=== PATIENT | male | born 1955 | race Caucasian/White ===

== ENCOUNTER 2017-04-07 09:24 | Emergency (ER) | payer SELFPAY ==
[2017-04-07] MEDS ORDERED: Lidocaine 1% 20 ML MDV ONE (09:43)
[2017-04-07] MEDS ORDERED: Triple Antibiotic Oint 1 GM Packet ONE (10:38)
--- NOTE | 2017-04-07 11:08 | RAD ---
RIGHT FINGERS 2 VIEWS: HISTORY: Right finger injury. FINDINGS: Soft tissue laceration involves the dorsum of the fingers. Overlapping on the lateral view obscures detail. Joint space narrowing and osteophytosis is present with well-corticated ossification of tiny ossific avulsions at the posterior aspect of the distal interphalangeal joints. Tiny irregular calcific dens ities overlie the volar tuft of the distal aspect of the middle finger on the lateral view. No metallic foreign bodies are evident. IMPRESSION: 1. Soft tissue laceration. No metallic foreign bodies are evident. 2. Small irregular densities, possibly embedded foreign bodies, within the volar tuft of the middle finger. POS: [facility]
== END 2017-04-07 10:55 | disposition home or self-care (01) ==
LOC: NAV ERS 09:24
DX: S61.213A Laceration without foreign body of left middle finger without damage to nail, initial encounter (principal); S61.215A Laceration without foreign body of left ring finger without damage to nail, initial encounter; F17.210 Nicotine dependence, cigarettes, uncomplicated; W26.8XXA Contact with other sharp object(s), not elsewhere classified, initial encounter
CPT/HCPCS: 12001; J2001

== ENCOUNTER 2017-04-16 16:56 | Emergency (ER) | payer SELFPAY | END 2017-04-16 17:40 | disposition home or self-care (01) | LOC: NAV ERS 16:56 | DX: S61.212D Laceration without foreign body of right middle finger without damage to nail, subsequent encounter (principal); S61.214D Laceration without foreign body of right ring finger without damage to nail, subsequent encounter; X58.XXXD Exposure to other specified factors, subsequent encounter ==